=== PATIENT | male | born 1960 | race Caucasian/White ===

== ENCOUNTER 2018-11-20 06:56 | Inpatient (IN) | payer BC ==
[2018-11-20] MEDS ORDERED: Scopolamine 1.5 MG Transdermal Patch TOP SCH (07:45)
[2018-11-20] MEDS ORDERED: Celecoxib 200 MG Cap PO ONE (07:45)
[2018-11-20] MEDS ORDERED: Acetaminophen 500 MG Tab PO ONE ×2 (07:45→09:00)
[2018-11-20] MEDS ORDERED: Gabapentin 300 MG Cap PO ONE (07:45)
[2018-11-20 07:48] LABS: HEMOGLOBIN A1C 6.6 % (4.5-6.2)
[2018-11-20] MEDS ORDERED: cefOXitin 2 GM Vial ONE (08:32)
[2018-11-20] MEDS ORDERED: Bupivacaine 0.5%/EPINEPHrine 1:200,000 50 ML MDV ONE (08:32)
[2018-11-20] MEDS ORDERED: Dextrose 5%-Lactated Ringers 1,000 ML IV SCH ×2 (08:45→14:30)
[2018-11-20] MEDS ORDERED: cefOXitin 2 GM in Sodium Chloride 0.9% 50 ML IV ONE (09:00)
[2018-11-20] MEDS ORDERED: Ketamine 500 MG/5 ML MDV IV SCH (09:30)
[2018-11-20] MEDS ORDERED: Ropivacaine 56 ML, Dexamethasone 8 MG, EPINEPHrine 0.4 MG, Sodium Chloride 0.9% 21.6 ML NERVRT SCH ×4 (09:30)
[2018-11-20] MEDS ORDERED: Lidocaine 2% 100 MG/5 ML Syringe IVPUSH SCH (09:30)
[2018-11-20] MEDS ORDERED: Ketamine 50 MG in Sodium Chloride 0.9% 49.5 ML IV SCH ×2 (09:30→11:00)
[2018-11-20] MEDS ORDERED: fentaNYL 250 MCG/5 ML SDV ONE ×2 (09:41→10:47)
[2018-11-20] MEDS ORDERED: Glycopyrrolate 0.2 MG/ML 5 ML MDV ONE (09:51)
[2018-11-20] MEDS ORDERED: Neostigmine Methylsulfate 1 MG/ML 5 ML Syringe ONE (09:51)
[2018-11-20] MEDS ORDERED: Midazolam 1 MG/ML 2 ML SDV ONE (09:51)
[2018-11-20] MEDS ORDERED: Dexamethasone 4 MG/ML SDV ONE (09:51)
[2018-11-20] MEDS ORDERED: Succinylcholine 200 MG/10 ML MDV ONE (09:51)
[2018-11-20] MEDS ORDERED: Propofol 200 MG/20 ML SDV ONE (09:51)
[2018-11-20] MEDS ORDERED: Ondansetron 4 MG/2 ML SDV ONE (09:51)
[2018-11-20] MEDS ORDERED: Rocuronium 50 MG/5 ML Vial ONE (09:51)
[2018-11-20] MEDS ORDERED: Lidocaine 1% PF 2 ML SDV ONE (10:43)
[2018-11-20] MEDS ORDERED: Lactated Ringers 1,000 ML ONE (10:54)
[2018-11-20] MEDS ORDERED: Naloxone 0.4 MG/ML SDV ONE (12:09)
[2018-11-20] MEDS ORDERED: hydrOXYzine HCl 100 MG/2 ML SDV IM ONE (12:38)
[2018-11-20] MEDS ORDERED: fentaNYL 100 MCG/2 ML SDV IVPUSH ONE ×2 (12:38→13:11)
[2018-11-20] MEDS ORDERED: Insulin Lispro 100 Unit/ML 3 ML KwikPen SUBCUT PRN (14:28)
[2018-11-20] MEDS ORDERED: Labetalol 20 MG/4 ML Syringe IVPUSH PRN (14:28)
[2018-11-20] MEDS ORDERED: hydrOXYzine HCl 100 MG/2 ML SDV IM PRN (14:28)
[2018-11-20] MEDS ORDERED: 50% Dextrose in Water 50 ML Syringe IVPUSH PRN (14:28)
[2018-11-20] MEDS ORDERED: Ondansetron 4 MG/2 ML SDV IVPUSH PRN (14:28)
[2018-11-20] MEDS ORDERED: diphenhydrAMINE 50 MG/ML SDV IVPUSH PRN (14:28)
[2018-11-20] MEDS ORDERED: Glucagon,Human Recombinant 1 MG Vial IM PRN (14:28)
[2018-11-20] MEDS ORDERED: HYDROmorphone 0.5 MG/0.5 ML Syringe IVPUSH PRN (14:28)
[2018-11-20] MEDS ORDERED: Metoclopramide 10 MG/2 ML SDV IVPUSH PRN (14:28)
[2018-11-20] MEDS ORDERED: Lactated Ringers 1,000 ML IV SCH (14:30)
[2018-11-20] MEDS ORDERED: HYDROmorphone 1 MG/ML Syringe IV PRN (14:36)
[2018-11-20] MEDS ORDERED: Pantoprazole 40 MG Vial IVPUSH SCH (16:00)
[2018-11-20] MEDS: MVI, Adult with Vitamin K 10 ML, Thiamine 200 MG, Chromium/Copper/Mang/Selen/Zn 1 ML in... IV SCH ×4 (16:58)
[2018-11-20] MEDS: cefOXitin 2 GM in Sodium Chloride 0.9% 50 ML IV SCH ×2 (16:59→21:10)
[2018-11-20] MEDS: Acetaminophen Soln 650 MG/20.3 ML UD Cup PO SCH ×2 (17:05→21:10)
[2018-11-20] MEDS: Lidocaine 0.4%/D5W 2 GM/500 ML BAG IV SCH (17:05)
[2018-11-20] MEDS: Heparin Sodium 5,000 Units/ML Vial SUBCUT SCH (17:12)
[2018-11-20] MEDS ORDERED: Gabapentin 250 MG/5 ML Solution ML 470 ML Bottle PO SCH (21:00)
[2018-11-21] MEDS ORDERED: Iohexol 647 MG/ML 50 ML SDV IVPUSH PRN (03:36)
[2018-11-21] MEDS: cefOXitin 2 GM in Sodium Chloride 0.9% 50 ML IV SCH (03:57)
[2018-11-21] MEDS: Acetaminophen Soln 650 MG/20.3 ML UD Cup PO SCH ×4 (03:58→21:30)
--- NOTE | 2018-11-21 04:19 | CRLCR ---
INDICATION: EVAL R-Y GBP SURGERY INDICATION: Aureliano-en-Y TECHNIQUE: Abdomen 2 view. COMPARISON: None FINDINGS: Transit of oral contrast through the gastric pouch into the mid jejunum without evidence for extravasation. Surgical drain noted in the left upper quadrant. IMPRESSION: Transit of oral contrast through the gastric pouch into the mid jejunum with no evidence for extravasation. Dictated by Jax Severino MD @ 11/21/2018 4:18:12 AM Dictated by: Jax Severino MD @ 11/21/2018 04:18:17 (Electronically Signed)
[2018-11-21] MEDS: Heparin Sodium 5,000 Units/ML Vial SUBCUT SCH ×2 (07:11→17:59)
[2018-11-21] MEDS: Celecoxib 200 MG Cap PO SCH (07:34)
[2018-11-21] MEDS: Aspirin 81 MG Tab.EC PO SCH (08:52)
[2018-11-21] MEDS: SCOPOLAMINE PATCH CHECK TOP SCH (08:52)
[2018-11-21] MEDS: Gabapentin 300 MG Cap PO SCH ×3 (09:02→21:30)
[2018-11-21] MEDS: Rosuvastatin 10 MG Tab PO SCH (09:03)
[2018-11-21] MEDS: Cyclobenzaprine 10 MG Tab PO SCH ×3 (09:03→21:30)
[2018-11-21] MEDS: Lidocaine 0.4%/D5W 2 GM/500 ML BAG IV SCH (09:45)
[2018-11-21] MEDS: MVI, Adult with Vitamin K 10 ML, Thiamine 200 MG, Chromium/Copper/Mang/Selen/Zn 1 ML in... IV SCH ×4 (16:26)
[2018-11-21] MEDS: Pantoprazole 40 MG Delayed-Release Granules 1 Packet PO SCH (16:30)
[2018-11-22] MEDS: Heparin Sodium 5,000 Units/ML Vial SUBCUT SCH ×2 (05:24→17:42)
[2018-11-22] MEDS: Acetaminophen Soln 650 MG/20.3 ML UD Cup PO SCH ×4 (05:25→21:01)
[2018-11-22] MEDS ORDERED: HYDROmorphone 2 MG Tab PO PRN (08:32)
[2018-11-22] MEDS ORDERED: Magnesium Hydroxide 400 MG/5 ML Susp 30 ML Cup PO PRN (08:33)
[2018-11-22] MEDS: Gabapentin 300 MG Cap PO SCH ×3 (08:48→20:53)
[2018-11-22] MEDS: Celecoxib 200 MG Cap PO SCH (08:48)
[2018-11-22] MEDS: Cyclobenzaprine 10 MG Tab PO SCH ×3 (08:48→20:53)
[2018-11-22] MEDS: Aspirin 81 MG Tab.EC PO SCH (08:49)
[2018-11-22] MEDS: SCOPOLAMINE PATCH CHECK TOP SCH (08:49)
[2018-11-22] MEDS: Rosuvastatin 10 MG Tab PO SCH (08:49)
[2018-11-22] MEDS ORDERED: Magnesium Hydroxide 400 MG/5 ML Susp 30 ML Cup PO ONE (09:00)
[2018-11-22] MEDS ORDERED: Cyanocobalamin (Vitamin B12) 1,000 MCG/ML SDV IM ONE (09:00)
--- NOTE | 2018-11-22 14:04 | PN ---
DATE OF SERVICE: 11/21/2018 The patient is postop day 1 from a sleeve gastrectomy along with a diaphragmatic hernia repair. Clinically, he has done well overnight, x-ray looks good, and we will begin a step- 2 diet today without solids. We are going to restart his pertinent oral medications. Pain control appears to be adequate with the present regimen, and he may be ready for discharge home either tomorrow or the next day. One issue will be the coming snowstorm, and his brother pick him up from [place], [place], which may not be a drivable route tomorrow, which will likely put this discharge until Friday. Ar Sherwood MD /[id number]
[2018-11-22] MEDS: Pantoprazole 40 MG Delayed-Release Granules 1 Packet PO SCH (16:18)
[2018-11-23] MEDS: Acetaminophen Soln 650 MG/20.3 ML UD Cup PO SCH ×2 (03:43→09:36)
[2018-11-23] MEDS: Heparin Sodium 5,000 Units/ML Vial SUBCUT SCH (05:10)
[2018-11-23] MEDS: Celecoxib 200 MG Cap PO SCH (09:34)
[2018-11-23] MEDS: Aspirin 81 MG Tab.EC PO SCH (09:34)
[2018-11-23] MEDS: Rosuvastatin 10 MG Tab PO SCH (09:35)
[2018-11-23] MEDS: Gabapentin 300 MG Cap PO SCH (09:35)
[2018-11-23] MEDS: Cyclobenzaprine 10 MG Tab PO SCH (09:36)
--- NOTE | 2018-11-24 05:05 | DISCH ---
ADMISSION DIAGNOSES: 1. Morbid obesity, BMI 39.9. 2. Dyslipidemia. 3. Insomnia. 4. Chronic back pain. DISCHARGE DIAGNOSES: 1. Laparoscopic sleeve gastrectomy. 2. Liver biopsy. 3. Repair of hiatal hernia and excision of mediastinal lipoma for morbid obesity, hepatomegaly, diaphragmatic hernia, and mediastinal lipoma. SURGEON: Ar Sherwood MD. HISTORY: Ga Molina is a 58-year-old male with morbid obesity and longstanding history of morbid obesity. After preoperative evaluation and discussion of possible risks and possible complications, he wished to proceed with surgical procedure. HOSPITAL COURSE: Ga had his surgery on 11/20/2018. He had no operative complications. On postoperative day #1, he was started on a step 2 gastric bypass diet without cereal. Dressing was removed. He was able to showers. Activity was good. On postoperative day #2, he continued to work on liquids. He received vitamin B12 1000 mcg IM injection and on postoperative day #3, he was able to be discharged to home. Vital signs were stable. He received dietary instruction. Oral intake adequate and activity good. Pain was well managed. PHYSICAL EXAMINATION: GENERAL: Ga Molina is a 58-year-old male, height is 5 feet 5 inches, weight is 240 pounds, BMI is 39.9. VITAL SIGNS: TPR is 98.2, 72, 16, blood pressure 128/69. HEENT: Negative. NECK: Supple. HEART: Regular rate and rhythm. LUNGS: Clear. ABDOMEN: Sutures intact 4 x 4 over DAYANARA drain site and abdominal binder is on. EXTREMITIES: Without peripheral edema. DISPOSITION: Discharged to home. CONDITION: Stable and improving. FOLLOWUP: Followup appointment with Tomeka Magana PA-C, on 12/01/2018 at 10:00 a.m. Appointment at [facility]. HOME MEDICATIONS: Tylenol 650 mg every 6 hours p.r.n. pain, Celebrex 200 mg daily #14 to take 1 daily. He is to resume taking his home medication, aspirin 81 mg oral daily, flexeril 10 mg oral three times a day p.r.n. muscle spasms, Neurontin 600 mg oral three times a day, Crestor 10 mg oral daily, 100 mg oral as directed. He is to discontinue taking vitamins and supplements until next appointment. DIET: Step 2 gastric bypass diet with no cereal until 12/21/2018. OTHER ACTIVITY: No lifting over 10 pounds for 2 weeks. He is to walk at least 6 times daily inside his house. Driving, do not drive for one week. Shower/bathing, may shower. DISCHARGE INSTRUCTIONS: Notify provider if any fever, increased pain, nausea, or vomiting. Keep site clean and dry. Wear abdominal binder for 2 weeks and then as tolerated. SPECIAL INSTRUCTIONS: Keep a list of protein and liquid intake and bring to clinic appointments. Use incentive spirometer 10 times every hour while awake.
--- NOTE | 2018-11-24 08:08 | PN ---
DATE OF SERVICE: 11/22/2018 The patient has been afebrile with stable vital signs. Oral intake is fairly good. We will give him some bowel stimulation today, saline lock the IV, and switch over to oral pain medication. The blood sugars have been running great and will discontinue the Accu-Cheks. Ar Sherwood MD /[id number]
--- NOTE | 2018-11-27 13:19 | OR ---
DATE OF PROCEDURE: 11/20/2018 PREOPERATIVE DIAGNOSIS: Morbid obesity. POSTOPERATIVE DIAGNOSES: 1. Morbid obesity. 2. Marked hepatomegaly. 3. Paraesophageal diaphragmatic hernia. 4. Mediastinal lipoma. OPERATIVE PROCEDURES: 1. Laparoscopic sleeve gastrectomy (63667). 2. Morgan-Cut needle liver biopsy (25798). 3. Repair of paraesophageal diaphragmatic hernia (02151). 4. Excision of mediastinal lipoma (81796). ANESTHESIA: General. SURGEON: Ar Sherwood MD ASSISTANTS: Tomeka Magana PA-C, and JUANITO Mott. INDICATIONS FOR PROCEDURE: This is a 58-year-old presenting with longstanding morbid obesity and increasingly significant comorbidities. After preoperative evaluation and discussion, he wished to proceed with a sleeve gastrectomy. Potential risks including bleeding, infection, leaks from various GI tract closures, and problems with bowel obstruction over time, as well as possibility of cardiopulmonary, septic, or hemorrhagic complications leading to were discussed, and the patient wishes to proceed. DETAILS OF PROCEDURE: The patient was taken to the operative room and placed in a supine position. After general endotracheal anesthesia was induced, the patient was converted to a lithotomy position and the abdomen was prepped and draped. At 15 cm inferior and 5 cm left of xiphoid process, transverse incision was made and the peritoneal cavity entered under direct vision with an Optiview trocar and inflated to 15 mmHg pressure with CO2. Laparoscope was reinserted. No underlying trocar insertion site injuries were seen. Following this, 5 additional trocars were placed across the upper mid abdomen. General exploration was undertaken. The patient was noted to have a marked hepatomegaly with liver volume being roughly 2 to 3 times normal and grossly fatty infiltrated. Morgan-Cut needle biopsies were obtained from left lobe of the liver. Minimal bleeding from the biopsy sites was controlled with electrocautery. Bilateral subcostal transverse abdominis plane blocks were then placed. The liver was then retracted anteriorly. The patient was noted to have a moderate-sized paraesophageal diaphragmatic hernia. The peritoneum overlying this was reflected downward and during the course of the dissection, a roughly ping-pong ball-sized mediastinal lipoma was encountered and excised and sent for histologic evaluation. An anterior repair of the diaphragmatic hernia was then accomplished with 0 Ethibond sutures reinforced with PTFE pledgets. At this point, the omentum was divided away from the greater curvature, beginning 2 cm proximal to the pylorus and extending along the greater curvature proximally up to and through the short gastric vessels, including the highest posterior short gastric vessels. The left diana of the diaphragm was then more or less skeletonized to be sure they were not having any excess fundus remaining in the area following the resection. At this point, the antrum and incisura angularis areas of the stomach were marked out for the initial staple line with care taken to avoid overtightening of the incisura angularis. Once this was mapped out, the first 3 firings of the DOMINIQUE black loads were accomplished beginning 2 cm proximal to the pylorus and continued underneath the incisura angularis. At that point, a 32-Chinese suction tube was placed per Anesthesia and positioned along the lesser curvature and from there into the antrum. This was then placed on suction, pulling the tube up against the lesser curvature wall. Remainder of the sleeve gastrectomy staple line was then accomplished with a combination of reinforced black and reinforced purple DOMINIQUE loads. At that point, the specimen was then reflected downward away from the operative field. The staple line was inspected and found to be intact. It was reinforced along its length with fibrin sealant with emphasis on the area of the esophagogastric junction. At the time of the esophagogastric junction staple line, we did veer slightly onto the stomach to avoid stapling the esophagus itself. The entire area of the staple line was then reinforced with the omentum being pulled up along it as well, and at that point, the suction tube was taken off suction and pulled slightly back so the tip was out of the antrum with the pylorus being compressed and the gastrectomy staple line being submerged with antibiotic- containing saline solution. Air was injected such that the sleeve gastrectomy was tightly distended. No bubbles were seen, and there was no evidence of bleeding. At this point, no further problems noted. The specimen was delivered through the left lateral trocar site, and a Carlos-Johnson drain had been placed through that site as well and then positioned up against the area of the esophagogastric junction and from there into the splenic fossa. At that point, no further problems were noted, and the trocars were sequentially removed and the fascia closed with 0 Vicryl stitch at the 12 and 15 mm trocar sites and the skin with 4-0 Vicryl skin stitch. Dressing was applied. The patient was taken to the recovery room in satisfactory condition. There were no evidence of complications. Physician practice assistant, Tomeka Magana, played an essential role in assisting in this case, helping to position the patient, retract structures as needed, as well as suturing and cutting sutures when indicated. Her presence improved patient's safety and decreased operative time. Ar Sherwood MD /[id number]
== END 2018-11-23 13:12 | disposition home or self-care (01) | DRG 403 ==
LOC: JP.SDS 06:56 → JP.SDSSCHI 06:56 → EDSTATUS 07:30 → JP.2SS 12:30
PROVIDERS: ADMIT Surgery; ATTEND Surgery
PROC: 0DB64Z3 Excision of Stomach, Percutaneous Endoscopic Approach, Vertical (ICD-10-PCS; principal; 2018-11-20)
PROC: 0WBC4ZX Excision of Mediastinum, Percutaneous Endoscopic Approach, Diagnostic (ICD-10-PCS; 2018-11-20)
PROC: 0FB24ZX Excision of Left Lobe Liver, Percutaneous Endoscopic Approach, Diagnostic (ICD-10-PCS; 2018-11-20)
PROC: 0BQT4ZZ Repair Diaphragm, Percutaneous Endoscopic Approach (ICD-10-PCS; 2018-11-20)
DX: E66.01 Morbid (severe) obesity due to excess calories (principal); Z68.41 Body mass index [BMI] 40.0-44.9, adult; R16.0 Hepatomegaly, not elsewhere classified; F11.20 Opioid dependence, uncomplicated; D17.4 Benign lipomatous neoplasm of intrathoracic organs; K44.9 Diaphragmatic hernia without obstruction or gangrene; E78.5 Hyperlipidemia, unspecified; G47.00 Insomnia, unspecified; M54.9 Dorsalgia, unspecified; G89.29 Other chronic pain; Z88.1 Allergy status to other antibiotic agents; Z88.8 Allergy status to other drugs, medicaments and biological substances; Z79.82 Long term (current) use of aspirin; Z91.048 Other nonmedicinal substance allergy status; Z87.891 Personal history of nicotine dependence
CPT/HCPCS: 36415; 74240; 80053; 82962; 83036; 83735; 84100; 85027; 86850; 86900; 86901; 88304; 88307; 88313; 94762; A9270-GY; C9113; J0171; J0330; J0694; J1100; J1644; J1815-GY; J2001; J2250; J2310; J2405; J2704; J2710; J2795; J3010; J3410; J3411; J3420; J3490; J7030; J7042; J7050; J7120; Q9967